=== PATIENT | female | born 1930 | race Hispanic/Latino ===

== ENCOUNTER 2018-02-02 17:00 | Emergency (ER) | payer OTHER ==
[~2018-02-02] VITALS: Ht 160 cm; Wt 85.3 kg
[~2018-02-02 17:00] MED LIST: SINGULAIR10 MG PO; Z LEVOTHROID; Z.0.ZOCOR20 MG
== END 2018-02-02 18:18 | disposition home or self-care (01) ==
LOC: FSED 17:00
DX: N30.00 Acute cystitis without hematuria (principal); R03.0 Elevated blood-pressure reading, without diagnosis of hypertension
CPT/HCPCS: 81003; 87086; 99283

== ENCOUNTER 2018-06-15 09:41 | Inpatient (IN) | payer OTHER ==
[~2018-06-15] VITALS: Ht 160 cm; Wt 75.7 kg
[2018-06-15] MEDS ORDERED: ASPIRIN 81 MG CHEW TAB PO ONE ×5 (10:00→15:45)
[2018-06-15 10:06] LABS: BASOPHILS # (AUTO) 0.1 (0.0-0.1); BASOPHILS % 0.5 % (0.0-1.0); EOSINOPHILS # (AUTO) 0.1 (0.0-0.4); EOSINOPHILS % 1.4 % (0.0-6.0); HEMATOCRIT 48.3 % (34.2-44.1); HEMOGLOBIN 15.6 g/dL (12.0-16.0); LYMPHOCYTES # (AUTO) 1.6 (1.0-3.2); LYMPHOCYTES % 17.7 % (18.0-39.1); MEAN CORPUSCULAR HEMOGLOBIN 28.7 pg (28-32); MEAN CORPUSCULAR HGB CONC 32.3 g/dL (31-35); MONOCYTES # (AUTO) 0.6 (0.2-0.8); MONOCYTES % 6.7 % (4.4-11.3); NEUTROPHILS # (AUTO) 6.8 (2.1-6.9); NEUTROPHILS % 73.4 % (38.7-80.0); PLATELET COUNT 238 x10e3/uL (140-360); RED BLOOD COUNT 5.43 x10e6/uL (3.6-5.1); RED CELL DISTRIBUTION WIDTH 13.6 % (11.7-14.4)
[2018-06-15] MEDS ORDERED: ADENOSINE 6 MG/2 ML VIAL IV ONE (10:15)
[2018-06-15 10:24] LABS: ALANINE AMINOTRANSFERASE 11 IU/L (0-55); ALBUMIN 3.9 g/dL (3.5-5.0); ALBUMIN/GLOBULIN RATIO 0.9 (0.8-2.0); ALKALINE PHOSPHATASE 109 IU/L (40-150); BLOOD UREA NITROGEN 22 mg/dL (7-26); BUN/CREATININE RATIO 29 (6-25); CALCIUM 10.2 mg/dL (8.4-10.2); CARBON DIOXIDE 22 mmol/L (22-29); CHLORIDE 103 mmol/L (98-107); CREATINE KINASE 39 IU/L (29-168); CREATININE, SERUM 0.75 mg/dL (0.57-1.11); EST GLOMERULAR FILTRATION RATE > 60 ML/MIN (60-); GLUCOSE 123 mg/dL (74-118); SODIUM 138 mmol/L (136-145)
[2018-06-15] MEDS ORDERED: DILTIAZEM HCL VIAL 5 ML ONE ×2 (10:49→13:09)
[2018-06-15 11:15] LABS: BILIRUBIN,URINE NEGATIVE (NEGATIVE); CLARITY,URINE SL CLOUDY (CLEAR); COLOR,URINE YELLOW (YELLOW); KETONES,URINE TRACE (NEGATIVE); LEUKOCYTE ESTERASE ,URINE 1+ (NEGATIVE); NITRITE,URINE NEGATIVE (NEGATIVE); PROTEIN,URINE DIPSTICK NEGATIVE (NEGATIVE); URINE UROBILINOGEN 0.2 mg/dL (0.2 - 1)
[2018-06-15 11:22] LABS: BACTERIA,URINE MANY /HPF; WBC,URINE (MAN) 21-50 /HPF (0-5)
[2018-06-15 11:23] LABS: EPITHELIAL CELLS,URINE FEW /LPF
[2018-06-15] MEDS ORDERED: DILTIAZEM HCL 5 MG/ML 5 ML VIAL IV ONE (11:45)
[2018-06-15] MEDS ORDERED: DILTIAZEM HCL 5 MG/ML 5 ML VIAL IV STA (13:30)
[2018-06-15 16:02] LABS: CHOL/HDL RATIO 2.9 (3.0-3.6)
[2018-06-15] MEDS ORDERED: METOPROLOL TARTRATE 25 MG TAB PO SCH ×2 (18:00→22:00)
[2018-06-15] MEDS: METOPROLOL TARTRATE INJ 1 MG/ML VIAL IV PRN (18:15)
--- NOTE | 2018-06-15 18:17 | Consultation ---
DATE OF CONSULTATION: REQUESTING PHYSICIAN: Dr. Richey. REASON FOR CONSULT: Atrial flutter, atrial fibrillation. HISTORY OF PRESENT ILLNESS: Ms. Espinoza is an 87-year-old lady with past medical history as listed below, reportedly had some episodes of palpitations last week and again had more episodes in the last few days, and again this morning. This morning apparently lasts for an hour or so and so she decided to come to the emergency room. She states it feels like an irregular heartbeat. There is no chest pain. Does get a little short-winded on exertion. REVIEW OF SYMPTOMS CONSTITUTIONAL: Has some fatigue and weakness. HEENT: No headache, blurring of vision, seizures, syncope. CARDIOVASCULAR: No chest pain. Had palpitations and some dyspnea. No orthopnea or PND. RESPIRATORY: No cough, fever or expectoration. GI: No abdominal pain, vomiting, diarrhea. : No dysuria, frequency, incontinence. ALLERGIES: HYDROCODONE AND INFLUENZA. MEDICATIONS: See list. PAST MEDICAL HISTORY 1. History of hypothyroidism. 2. History of hyperlipidemia. 3. Was told to have high blood pressure. SOCIAL HISTORY: Does not smoke or drink. Drinks a cup of decaffeinated coffee every day. FAMILY HISTORY: Noncontributory. PHYSICAL EXAMINATION GENERAL: Moderately built and nourished lady, alert, oriented, not in any obvious distress. VITAL SIGNS: Heart rate is 100, blood pressure 117/68, respiratory rate is 18. HEENT: Atraumatic. NECK: No JVD, bruit, thyromegaly, or lymphadenopathy. CARDIOVASCULAR: First and second heart sounds heard. No murmurs, rubs or gallops appreciated. CHEST: Decreased air entry at the bases. No adventitious sounds appreciated. ABDOMEN: Soft, nontender. EXTREMITIES: No edema. LABORATORY DATA: Sodium is 138, potassium 4.0, chloride is 103, bicarb is 22, BUN is 22, creatinine 0.7, glucose 123. Hemoglobin is 15.6, hematocrit 48.3, platelet are 238, white count is 9.2. EKG shows sinus tach/atrial flutter at 145 beats per minute, left axis nonspecific ST-T changes. Repeat EKG shows atrial flutter at 72 beats per minute, left axis nonspecific ST-T changes. IMPRESSION 1. Atrial flutter and atrial fibrillation. 2. Hypothyroidism. 3. Hyperlipidemia. PLAN 1. It sounds like patient has paroxysmal atrial fibrillation. 2. We will get echocardiogram to assess LV function and valvular function. 3. Check thyroid function test. 4. Check cardiac enzymes. 5. Start her on Lovenox and metoprolol. 6. Discussed with patient and son about long-term anticoagulation, to which they agree. We will eventually put her on a NOAC. 7. Also discussed about electrical cardioversion and ablation. For now, they want to continue medical therapy. 8. Further cardiac workup depending on clinical course. As always, I appreciate and thank you very much for your referral. Job#: [id number] GABRIEL
[2018-06-15 19:24] LABS: CREATINE KINASE MB 1.3 ng/mL (0-5.0)
[2018-06-15] MEDS ORDERED: ENOXAPARIN SOD INJ 60 MG/0.6 ML SYR SC ONE (20:29)
[2018-06-15] MEDS ORDERED: METOPROLOL TARTRATE 25 MG TAB ONE (20:29)
[2018-06-15] MEDS: ENOXAPARIN SOD INJ 60 MG/0.6 ML SYR SC SCH (20:44)
[2018-06-15] MEDS ORDERED: BENZONATATE 100 MG CAP PO PRN (21:45)
[2018-06-15] MEDS ORDERED: ACETAMINOPHEN 325 MG TAB PO PRN (21:45)
[2018-06-15] MEDS ORDERED: SENNOSIDES 8.6 MG TAB PO PRN (22:00)
[2018-06-15] MEDS ORDERED: MAGNESIUM HYDROXIDE 30 ML UDC PO PRN (22:00)
[2018-06-16] VITALS (7 sets, daily range): BP systolic 117–138; BP diastolic 72–76
[2018-06-16] MEDS: METOPROLOL TARTRATE INJ 1 MG/ML VIAL IV PRN (00:30)
[2018-06-16] MEDS: LORATADINE 10 MG TAB PO SCH ×2 (01:23→09:44)
[2018-06-16] MEDS: CEFTRIAXONE SOD 1 GM VIAL IV SCH ×2 (01:24→21:36)
[2018-06-16] MEDS: MONTELUKAST SODIUM 10 MG TAB PO SCH ×2 (01:24→21:43)
[2018-06-16 03:13] LABS: BASOPHILS # (AUTO) 0.1 (0.0-0.1); BASOPHILS % 0.6 % (0.0-1.0); EOSINOPHILS # (AUTO) 0.2 (0.0-0.4); EOSINOPHILS % 2.2 % (0.0-6.0); HEMATOCRIT 45.9 % (34.2-44.1); HEMOGLOBIN 14.8 g/dL (12.0-16.0); LYMPHOCYTES # (AUTO) 2.3 (1.0-3.2); LYMPHOCYTES % 27.5 % (18.0-39.1); MEAN CORPUSCULAR HEMOGLOBIN 28.6 pg (28-32); MEAN CORPUSCULAR HGB CONC 32.2 g/dL (31-35); MEAN CORPUSCULAR VOLUME 88.6 fL (81-99); MONOCYTES # (AUTO) 0.7 (0.2-0.8); MONOCYTES % 8.7 % (4.4-11.3); NEUTROPHILS # (AUTO) 5.1 (2.1-6.9); NEUTROPHILS % 60.6 % (38.7-80.0); PLATELET COUNT 223 x10e3/uL (140-360); RED BLOOD COUNT 5.18 x10e6/uL (3.6-5.1); RED CELL DISTRIBUTION WIDTH 13.5 % (11.7-14.4)
[2018-06-16] MEDS ORDERED: AMIODARONE 900MG 500 ML IV ONE (03:26)
[2018-06-16 03:29] LABS: ANION GAP 14.8 mmol/L (8-16); BLOOD UREA NITROGEN 15 mg/dL (7-26); BUN/CREATININE RATIO 23 (6-25); CALCIUM 9.7 mg/dL (8.4-10.2); CARBON DIOXIDE 22 mmol/L (22-29); CHLORIDE 103 mmol/L (98-107); CREATININE, SERUM 0.64 mg/dL (0.57-1.11); EST GLOMERULAR FILTRATION RATE > 60 ML/MIN (60-); GLUCOSE 113 mg/dL (74-118); POTASSIUM 3.8 mmol/L (3.5-5.1); SODIUM 136 mmol/L (136-145)
[2018-06-16] MEDS ORDERED: AMIODARONE HCL 150 MG/100 ML BAG IV ONE (03:30)
[2018-06-16 03:43] LABS: CREATINE KINASE MB 1.2 ng/mL (0-5.0)
[2018-06-16 03:50] LABS: CHOL/HDL RATIO 2.7 (3.0-3.6)
[2018-06-16] MEDS ORDERED: AMIODARONE 900MG 500 ML IV SCH ×2 (04:00→10:00)
[2018-06-16 04:14] LABS: FOLATE 15.7 ng/mL (7.0-15.4)
[2018-06-16 04:15] LABS: MAGNESIUM 1.9 MG/DL (1.3-2.1); PHOSPHORUS 2.8 MG/DL (2.3-4.7)
[2018-06-16] MEDS: METOPROLOL TARTRATE 25 MG TAB PO SCH ×3 (05:59→21:43)
[2018-06-16] MEDS: ENOXAPARIN SOD INJ 60 MG/0.6 ML SYR SC SCH ×3 (06:00→21:43)
[2018-06-16] MEDS: BENZONATATE 100 MG CAP PO SCH ×3 (09:44→21:42)
[2018-06-16 13:35] LABS: CREATINE KINASE MB 1.1 ng/mL (0-5.0)
[2018-06-16 19:07] LABS: CREATINE KINASE MB 1.2 ng/mL (0-5.0)
[2018-06-17] VITALS (7 sets, daily range): BP systolic 99–121; BP diastolic 63–89
[2018-06-17] MEDS: METOPROLOL TARTRATE 25 MG TAB PO SCH ×3 (04:39→21:03)
[2018-06-17] MEDS: AMIODARONE HCL 200 MG TAB PO SCH (08:48)
[2018-06-17] MEDS: LORATADINE 10 MG TAB PO SCH (08:48)
[2018-06-17] MEDS: BENZONATATE 100 MG CAP PO SCH ×3 (08:48→20:51)
[2018-06-17] MEDS: ENOXAPARIN SOD INJ 60 MG/0.6 ML SYR SC SCH ×2 (09:30→21:03)
[2018-06-17] MEDS: CYANOCOBALAMIN INJ 1,000 MCG/ML VIAL IM SCH (10:43)
[2018-06-17] MEDS: CEFTRIAXONE SOD 1 GM VIAL IV SCH (20:51)
[2018-06-17] MEDS: MONTELUKAST SODIUM 10 MG TAB PO SCH (21:03)
[2018-06-18] VITALS (10 sets, daily range): BP systolic 78–120; BP diastolic 45–72
[2018-06-18] MEDS: METOPROLOL TARTRATE 25 MG TAB PO SCH ×2 (06:00→14:00)
[2018-06-18] MEDS ORDERED: BENZOCAINE 20% SPR 60 ML CAN ONE (06:46)
[2018-06-18] MEDS: CYANOCOBALAMIN INJ 1,000 MCG/ML VIAL IM SCH (09:27)
[2018-06-18] MEDS: APIXABAN 5 MG TABLET PO SCH ×2 (09:27→15:43)
[2018-06-18] MEDS: LORATADINE 10 MG TAB PO SCH (09:27)
[2018-06-18] MEDS: AMIODARONE HCL 200 MG TAB PO SCH (09:27)
[2018-06-18] MEDS: BENZONATATE 100 MG CAP PO SCH ×2 (09:27→15:43)
[2018-06-18] MEDS ORDERED: SODIUM CHLORIDE 0.9% 1000ML 1,000 ML IV ONE (11:15)
[2018-06-18] MEDS ORDERED: PROPOFOL IV EMULSION 10 MG/ML 20 ML VIAL ONE (17:34)
--- NOTE | 2018-06-19 07:10 | Operative Report ---
DATE OF PROCEDURE: June 18, 2018 PROCEDURE: Synchronized cardioversion. INDICATIONS: Atrial flutter/atrial fibrillation. DESCRIPTION OF PROCEDURE: After informed consent, the patient was brought to the endoscopy suite. Patient was anesthetized by the anesthesiologist. She underwent transesophageal echocardiogram. No thrombus was noted. Paddles were placed on the patient's chest. Patient received 50 joules of synchronized cardioversion. Patient converted to a sinus rhythm. Patient tolerated the procedure without any complications. Job#: [id number] RI HUNG
--- NOTE | 2018-06-19 09:14 | Discharge Summary ---
LAW RESEARCHER: Dr. Corby Valverde FINAL DIAGNOSES 1. Atrial fibrillation with rapid ventricular rate response, status post rate control treatment and also status post cardioversion. 2. Overreplacement of thyroid medication. 3. Episodic hypotension after cardioversion, resolved. SUMMARY: An 87-year-old female well known to me has hypothyroidism. Patient came in with acute new-onset atrial fibrillation and atrial flutter. Heart rate in 120-130. The patient's TSH was very low, less than 0.01. Patient was taking thyroid replacement therapy. Her thyroid medication has been adjusted. The patient is stable with the treatment. While she was hospitalized, she was on a Cardizem drip at first, and then subsequently rate medication control, including beta natali and metoprolol. She was also loaded with amiodarone. Patient received Lovenox and subsequently going home. The patient takes Eliquis 5 mg twice a day. She is doing much better. She had cardioversion which converted to normal sinus rhythm. Rate was controlled. Blood pressure was low after the procedure, but IV bolus of normal saline 250 mL brought the patient's blood pressure up to 110-115 systolic. Patient was stable. She was discharged home. Medication reconciliation and prescriptions were given. Please review the medication list. Patient to follow up with Dr. Valverde in 1 week and myself within a week for medication reconciliation and post hospital followup. Job#: [id number] FUNMILAYO
--- NOTE | 2018-06-20 09:27 | Cardiology Report ---
DATE OF STUDY: June 18, 2018 TRANSESOPHAGEAL ECHOCARDIOGRAM REPORT INDICATIONS: Rule out thrombus prior to cardioversion. DESCRIPTION OF PROCEDURE: After informed consent, patient was brought to the endoscopy suite. The patient's throat was sprayed with Cetacaine spray. Patient was anesthetized by the anesthesiologist. Transesophageal probe was passed without any difficulty, and images were obtained in the usual fashion. Patient tolerated the procedure without any complication. REPORT: Left ventricle: Normal size with preserved systolic function. The overall estimated ejection fraction is about 50% to 55%. Left atrium: Appears to be of normal size. No spontaneous echo contrast or thrombus is seen in the left atrium or left atrial appendage. Right atrium: Normal size. Right ventricle: Normal size. Mitral valve: Is thickened with hypervalvular excursion. Trace mitral regurgitation is noted. No vegetation is seen on the mitral valve leaflets. Aortic valve: Is mildly calcified with hypervalvular excursion. No vegetation is seen on the aortic valve leaflets. No aortic regurgitation is noted. Tricuspid valve: Is structurally normal with hypervalvular excursion. Trace tricuspid regurgitation is noted. No vegetation is seen on the tricuspid valve leaflets. Pulmonic valve: Is structurally normal with hypervalvular excursion. No pulmonic regurgitation is noted. Aorta: Mild atherosclerotic plaquing at the aorta is noted. Others: No pericardial effusion is noted. No right-left shunt is seen on color contrast injection across the anterior atrial or interventricular septum, and no left-right shunt is seen across the interatrial septum on color flow. CONCLUSION: 1. Left ventricle normal size with preserved systolic function. 2. The overall estimated ejection fraction is 50% to 55%. 3. No intracardiac thrombi or vegetations noted. 4. Trace mitral regurgitation is noted. Mild atherosclerotic plaquing at the aorta is noted. Job#: [id number] EV
--- OUTSIDE RECORDS SUMMARY | 2018-08-02 02:34 | XMS REPORT | Continuity of Care Document ---
Author Author [facility] Organization [facility] Address [address] [place] [address] Phone Unavailable Care Team Providers Care Twisting Frame Operator Name Role Phone FIORDALIZA GARCIA MD PCP Insurance Providers Guarantor Toña Trevino Address [address] [place] [address] Email NONE Payer [employer] Policy Number [id number] Subscriber's Name Toña Trevino Relationship 18 Self / Same As Patient Group Number [id number] Group Name [id number] Effective Date 17 Advance Directives Directive Response Recorded Date/Time Does the patient have an advance directive? No 08/07/11 7:40am If yes, is advance directive on file with [facility]? No 08/07/11 7:40am If not on file with [facility] will patient provide a copy? No 08/07/11 7:40am Do you have a Directive to Physician? No 02/02/18 6:11pm Do you have a Medical Power of [place]? No 02/02/18 6:11pm Do you have an out of hospital Do Not Resuscitate Order? No 02/02/18 6:11pm Do you have any special needs we should be aware of? No 02/02/18 6:11pm Do you have a support person here with you today? No 02/02/18 6:11pm Did patient receive Notice of Privacy Practices? Yes 02/02/18 6:11pm Did patient receive patient rights and responsibilities? Yes 02/02/18 6:11pm Problems No problem information available. Medications Current Home Medications Medication Dose Units Route Directions Days Qty Instructions Start Date Levothyroxine Sodium (Levothroid) 112 Mcg Tablet Daily Montelukast Sodium (Singulair) 10 Mg Tablet 10 Mg Oral Daily Simvastatin (Zocor) 20 Mg Tablet Daily Social History No social history information available. Hospital Discharge Instructions No hospital discharge instruction information available. Plan of Care Discharge Date 02/02/18 6:18pm Disposition HOME, SELF-CARE Condition at Discharge Stable Instructions/Education Provided Urinary Tract Infection - Women Forms Provided Work/School Excuse Prescriptions See Medication Section Referrals FIORDALIZA GARCIA MD Address: [address] [place] [id number] Additional Instructions/Education Return to the closest emergency room if symptoms worsen. Take medication as prescribed. Fill your prescription immediately after leaving the ER. Tylenol as needed for pain. Follow up with your doctor on Monday. Functional Status No functional status information available. Allergies, Adverse Reactions, Alerts Allergen Type Severity Reaction Status Last Updated Influenza Virus Vaccine Allergy Active 08/07/11 Hydrocodone Adverse Reaction HALLUCINATIONS Active 08/07/11 Immunizations No immunization information available. Vital Signs Acute Vital Signs Vital Response Date/Time Height 5 ft 3 in 02/02/2018 5:16pm Weight 188 lb 02/02/2018 5:16pm Body Mass Index 33.3 kg/m^2 02/02/2018 5:16pm Results No relevant diagnostic test, laboratory data and/or discharge summary information available. Procedures No procedure information available. Encounters Encounter Location Arrival/Admit Date Discharge/Depart Date Attending Provider Departed Emergency Room [facility] 02/02/18 5:00pm 6:18pm ADAM DIANA MD
== END 2018-06-18 17:54 | disposition home or self-care (01) | DRG 310 ==
LOC: ER 09:41 → UNDOADMIN 12:10 → ERHOLD 12:10 → UNDOADMIN 15:26 → ERHOLD 15:26 → UNDOADMIN 17:35 → ERHOLD 17:36 → IMCU 06-16 14:19 → PACU V 06-18 13:30 → IMCU 06-18 13:38
PROVIDERS: ADMIT Internal Medicine; ATTEND Internal Medicine
PROC: 5A2204Z Restoration of Cardiac Rhythm, Single (ICD-10-PCS; principal; 2018-06-15)
DX: I48.0 Paroxysmal atrial fibrillation (principal); I48.92 Unspecified atrial flutter; I95.1 Orthostatic hypotension; E03.9 Hypothyroidism, unspecified; E78.5 Hyperlipidemia, unspecified; T38.0X5A Adverse effect of glucocorticoids and synthetic analogues, initial encounter
CPT/HCPCS: 36415; 80048; 80053; 80061; 81001; 82550; 82553; 82607; 82746; 83735; 84100; 84443; 84484; 85025; 92960; 93005; 93306; 93312; 93320; 93325; 99285; J0153; J0696; J1650; J3420; J7030

== ENCOUNTER 2018-07-12 03:45 | Observation (INO) | payer OTHER ==
[~2018-07-12] VITALS: Ht 157.5 cm; Wt 73.9 kg
[2018-07-12] MEDS ORDERED: ASPIRIN 81 MG CHEW TAB PO STA (04:05)
[2018-07-12] MEDS ORDERED: NITROGLYCERIN 2% OINT 1 GM PKT TOP ONE (04:15)
--- NOTE | 2018-07-12 05:24 | Diagnostic Imaging Report ---
EXAMINATION: CXR 1 W - [facility] INDICATION: Chest pain. COMPARISON: None FINDINGS: TUBES and LINES: None. LUNGS: Lungs are well inflated. Lungs are clear. There is no evidence of pneumonia or pulmonary edema. PLEURA: No pleural effusion or pneumothorax. HEART AND MEDIASTINUM: The cardiomediastinal silhouette is unremarkable. There are atherosclerotic calcifications within the aorta. BONES AND SOFT TISSUES: No acute osseous lesion. Soft tissues are unremarkable. UPPER ABDOMEN: No free air under the diaphragm. IMPRESSION: No acute thoracic abnormality. Signed by: Dr. Elijah Benítez M.D. on 07/12/2018 5:21 AM
[2018-07-12] MEDS ORDERED: HYDRALAZINE HCL 20 MG/ML VIAL IV STA (05:26)
[2018-07-12] MEDS ORDERED: ASPIRIN 81 MG CHEW TAB PO ONE (05:30)
[2018-07-12] MEDS ORDERED: HYDRALAZINE HCL 10 MG TAB PO ONE (05:45)
[2018-07-12] MEDS ORDERED: METOPROLOL TART25 MG PO (05:54)
[2018-07-12] MEDS ORDERED: LEVOTHYROXINE100 MC1 PO (05:54)
[2018-07-12] MEDS ORDERED: AMIODARONE HCL200 MG (05:54)
[2018-07-12] MEDS ORDERED: eliquis PO (05:54)
[2018-07-12] MEDS ORDERED: HYDRALAZINE HCL 25 MG TAB PO ONE (06:15)
[2018-07-12 07:20] VITALS: BP 156/71
[2018-07-12 07:21] LABS: CREATINE KINASE MB 0.7 ng/mL (0-5.0)
[2018-07-12 07:25] VITALS: BP 156/71
[2018-07-12] MEDS ORDERED: VITAMIN B-121000 MCG PO (08:20)
[2018-07-12] MEDS ORDERED: ASPIRIN 81 MG ENTERIC COATED PO SCH (09:00)
--- NOTE | 2018-07-12 09:12 | History and Physical ---
CHIEF COMPLAINT: Bradycardia and high blood pressure. HISTORY: This is an 87-year-old female with hypothyroidism. The patient was taking thyroid medication previously at a higher dose. Her TSH was less than 0.01. Patient came in previously with atrial fibrillation. Subsequently, she received cardioversion and amiodarone and beta natali. When she was discharged, her thyroid medication, levothyroxine, was decreased to 100 mcg per day. She has not had her TSH checked as well. Now, she came in with bradycardia and high blood pressure. The patient is otherwise stable. Cardiac enzyme is negative. The patient will need adjustment of her medication. PAST MEDICAL HISTORY: Hypothyroidism, hypertension, atrial fibrillation. PAST SURGICAL HISTORY: She has cataract, cholecystectomy, appendectomy and partial hysterectomy. SOCIAL HISTORY: Patient does not smoke or use alcohol. No recreational drugs. ALLERGIES: TO INFLUENZA VACCINE AND HYDROCODONE. HOME MEDICATIONS: Patient on amiodarone 2 mg daily, B12, levothyroxine 100 mcg daily, metoprolol tartrate 25 mg b.i.d. and Eliquis 5 mg b.i.d. PHYSICAL EXAMINATION VITAL SIGNS: Temperature is 98. Blood pressure 156/71. Pulse rate 50. Respirations 18. GENERAL: The patient is in no acute distress. She is comfortable. No chest pain. No shortness of breath. HEENT: Normocephalic, atraumatic. NECK: Supple grossly. PULMONARY: Diminished breath sounds, but without any wheezing or rales. CARDIOVASCULAR: Bradycardia. ABDOMEN: Soft, nontender. No distention. EXTREMITIES: No cyanosis or edema. NEUROLOGIC: No gross focal deficit. LABORATORY: Sodium is 141, potassium is 4.1, chloride is 104, bicarb is 27, BUN is 20, creatinine 0.9, glucose is 109. Liver enzymes unremarkable. WBC 7.1, hemoglobin is 14.9, hematocrit 44, platelet is 184,000. IMPRESSION 1. Bradycardia most likely secondary to medication effect. The patient did decrease her thyroid medication, therefore, most likely normalized thyroid stimulating hormone and therefore helping with the heart rate. Then, subsequently on beta natali and amiodarone, her heart rate may have decreased to bradycardia. 2. Hypothyroidism, previously overreplacement with thyroid medication. 3. Baseline hypotension. 4. Dyslipidemia. PLAN: 1. Continue with her 100 mg levothyroxine. Hold off the amiodarone and the metoprolol for now. Add on nifedipine XL 30 mg once a day for blood pressure control. Monitor the patient closely. 2. Once the heart rate is above 60, the patient should be able to go home and continue to adjust her heart rate as an outpatient. The patient is otherwise stable at this time. Job#: [id number] GE
[2018-07-12] MEDS: CYANOCOBALAMIN 1,000 MCG TAB PO SCH (09:15)
[2018-07-12] MEDS: APIXABAN 5 MG TABLET PO SCH ×2 (09:15→17:43)
[2018-07-12] MEDS: LEVOTHYROXINE SODIUM 100 MCG TAB PO SCH (09:15)
[2018-07-12] MEDS ORDERED: NIFEDIPINE CR 30 MG TAB PO ONE (09:15)
[2018-07-12 11:13] VITALS: BP 153/67
[2018-07-12 15:40] VITALS: BP 149/70
[2018-07-12 16:22] LABS: CREATINE KINASE 37 IU/L (29-168)
[2018-07-12 20:00] VITALS: BP 128/63
[2018-07-12 20:20] VITALS: BP 128/63
[2018-07-13] VITALS: BP 127/60
[2018-07-13 05:00] VITALS: BP 124/59
[2018-07-13] MEDS: LEVOTHYROXINE SODIUM 100 MCG TAB PO SCH (06:09)
[2018-07-13 06:22] LABS: ANION GAP 14.2 mmol/L (8-16); BLOOD UREA NITROGEN 16 mg/dL (7-26); BUN/CREATININE RATIO 20 (6-25); CALCIUM 9.6 mg/dL (8.4-10.2); CARBON DIOXIDE 26 mmol/L (22-29); CHLORIDE 104 mmol/L (98-107); CREATININE, SERUM 0.79 mg/dL (0.57-1.11); EST GLOMERULAR FILTRATION RATE > 60 ML/MIN (60-); GLUCOSE 94 mg/dL (74-118); POTASSIUM 4.2 mmol/L (3.5-5.1); SODIUM 140 mmol/L (136-145)
[2018-07-13 06:47] LABS: CHOL/HDL RATIO 3.1 (3.0-3.6)
[2018-07-13 06:55] LABS: CREATINE KINASE MB 0.6 ng/mL (0-5.0)
[2018-07-13 07:59] VITALS: BP 121/60
[2018-07-13] MEDS: APIXABAN 5 MG TABLET PO SCH (08:40)
[2018-07-13] MEDS: CYANOCOBALAMIN 1,000 MCG TAB PO SCH (08:41)
[2018-07-13] MEDS ORDERED: NIFEDIPINE CR 30 MG TAB PO SCH (09:00)
[2018-07-13] MEDS ORDERED: LEVOTHYROXINE SODIUM 50 MCG TAB PO ONE (09:10)
--- NOTE | 2018-07-13 09:12 | Discharge Summary ---
FINAL DIAGNOSES 1. Bradycardia, much improved. 2. Atypical chest pain. Negative cardiac enzymes with a previous cardiac workup negative. 3. Hypothyroidism, required adjustment of her thyroid medication. SUMMARY: Patient is a very pleasant 87-year-old female previously admitted for rapid ventricular rate response of atrial fibrillation. Patient's TSH was significantly low on last admission. The patient thyroid medication was adjusted. Her TSH now is 7.08. It was 0.02 previously. The patient was taking levothyroxine 100 mcg daily. It will increase to 125 mcg daily. The patient was on beta natali and amiodarone for her rate control. She came in with a heart rate in the 40s, but now in the 50s and rising. Patient is stable. She is ambulatory. No palpitations. No chest pain. No shortness breath. The patient wants to go home and I agreed that the patient can go home today. I will increase her levothyroxine to 125 mcg daily, and will continue to monitor closely with the TSH on followup. The patient will have her checkup with me on Monday. I advised the patient to continue to rest at home and see me on Monday for adjustment of medication. For now, the patient hold off on the amiodarone and metoprolol for now. Will continue to monitor her heart rate. The patient is otherwise stable at this time. Job#: [id number] FUNMILAYO
[2018-07-13 09:18] VITALS: BP 121/60
[2018-07-13] MEDS ORDERED: SYNTHROID125 MCG PO (10:47)
[2018-07-14] MEDS ORDERED: LEVOTHYROXINE SODIUM 125 MCG TAB PO SCH (06:00)
== END 2018-07-13 11:13 | disposition home or self-care (01) ==
LOC: FSED 03:45 → ERHOLD 05:52 → IMCU 06:28
PROVIDERS: ADMIT Internal Medicine; ATTEND Internal Medicine
DX: R00.1 Bradycardia, unspecified (principal); R07.89 Other chest pain; T38.1X5A Adverse effect of thyroid hormones and substitutes, initial encounter; E03.9 Hypothyroidism, unspecified; I48.91 Unspecified atrial fibrillation; I10 Essential (primary) hypertension; Z88.5 Allergy status to narcotic agent; Z88.7 Allergy status to serum and vaccine; E78.5 Hyperlipidemia, unspecified; I95.9 Hypotension, unspecified
CPT/HCPCS: 36415 ×2; 71045; 80048; 80053; 80061; 82550 ×2; 82553 ×2; 83735; 84443; 84484 ×2; 85025; 85379; 93005; 99284; G0378 ×2; J0360

== ENCOUNTER 2019-01-23 23:33 | Emergency (ER) | payer OTHER ==
[~2019-01-23] VITALS: Ht 157.5 cm; Wt 73.9 kg
[~2019-01-23 23:33] MED LIST changes: +AMIODARONE HCL200 MG; +LEVOTHYROXINE100 MC1 PO; +METOPROLOL TART25 MG PO; +SYNTHROID125 MCG PO; +VITAMIN B-121000 MCG PO; +eliquis PO
[2019-01-23] MEDS ORDERED: HYDRALAZINE HCL 25 MG TAB PO ONE (23:45)
[2019-01-23] MEDS ORDERED: MECLIZINE HCL 12.5 MG TAB ONE (23:52)
[2019-01-24] MEDS ORDERED: MECLIZINE HCL 12.5 MG TAB PO ONE
[2019-01-24 00:05] LABS: CLARITY,URINE CLEAR (CLEAR); COLOR,URINE YELLOW (YELLOW)
[2019-01-24 00:06] LABS: BILIRUBIN,URINE NEGATIVE (NEGATIVE); KETONES,URINE NEGATIVE (NEGATIVE); LEUKOCYTE ESTERASE ,URINE NEGATIVE (NEGATIVE); NITRITE,URINE NEGATIVE (NEGATIVE); PROTEIN,URINE DIPSTICK NEGATIVE (NEGATIVE); URINE UROBILINOGEN 0.2 mg/dL (0.2 - 1)
--- NOTE | 2019-01-24 00:25 | Diagnostic Imaging Report ---
CT BRAIN WO HISTORY: Dizziness COMPARISON: None. TECHNIQUE: Noncontrast axial scans were obtained from skull base to the vertex. Coronal and sagittal reconstructions obtained from the axial data. One or more of the following dose reduction techniques were used: Automated exposure control, adjustment of the mA and/or kV according to patient size, and/or utilization of iterative reconstruction technique. DISCUSSION: Scalp/Skull: Unremarkable. Brain sulci: Appropriate for patient's age. Ventricles: Normal in size and configuration. No hydrocephalus. Extra-axial spaces: No masses or fluid collections. Carotid siphon calcifications are present. Parenchyma: Mild periventricular white matter hypodensities are likely chronic microvascular ischemic changes. Otherwise, no mass, hemorrhage, or large vascular territory acute infarct. Dural sinuses: No abnormal densities. Sellar/Suprasellar region: Intact. Skull base: Intact. Incidental findings: Both ocular lenses appear thinned. IMPRESSION: 1. No acute intracranial abnormalities. 2. Mild supratentorial chronic microvascular ischemic change. Signed by: Dr. Armond Enriquez M.D. on 01/24/2019 12:22 AM
[2019-01-24 00:33] LABS: BACTERIA,URINE FEW /HPF; EPITHELIAL CELLS,URINE FEW /LPF; WBC,URINE (MAN) 0-5 /HPF (0-5)
[2019-01-24 00:55] VITALS: BP 152/60
[2019-01-24] MEDS ORDERED: SODIUM CHLORIDE 0.9% 1000ML 1,000 ML ONE (11:44)
== END 2019-01-24 01:09 | disposition home or self-care (01) ==
LOC: ER 23:33
DX: H81.12 Benign paroxysmal vertigo, left ear (principal); I10 Essential (primary) hypertension; I48.91 Unspecified atrial fibrillation; E78.00 Pure hypercholesterolemia, unspecified; E03.9 Hypothyroidism, unspecified; K21.9 Gastro-esophageal reflux disease without esophagitis; R00.1 Bradycardia, unspecified; M19.90 Unspecified osteoarthritis, unspecified site
CPT/HCPCS: 70450; 81001; 93005; 99283; J7030; J8597

== ENCOUNTER 2019-09-08 15:14 | Emergency (ER) | payer OTHER ==
[~2019-09-08] VITALS: Ht 157.5 cm; Wt 73.9 kg
[2019-09-08] MEDS ORDERED: LOSARTAN POTAS100 MG PO (15:51)
[2019-09-08] MEDS ORDERED: ELIQUIS5 MG PO (15:51)
[2019-09-08] MEDS ORDERED: MECLIZINE HCL12.5 MG PO (15:51)
[2019-09-08] MEDS ORDERED: AMIODARONE HCL200 MG PO (15:51)
[2019-09-08 16:06] LABS: BASOPHILS # (AUTO) 0.1 (0.0-0.1); BASOPHILS % 0.8 % (0.0-1.0); EOSINOPHILS # (AUTO) 0.1 (0.0-0.4); EOSINOPHILS % 2.2 % (0.0-6.0); HEMATOCRIT 45.1 % (34.2-44.1); HEMOGLOBIN 14.8 g/dL (12.0-16.0); LYMPHOCYTES % 17.3 % (18.0-39.1); MEAN CORPUSCULAR HEMOGLOBIN 29.3 pg (28-32); MEAN CORPUSCULAR HGB CONC 32.8 g/dL (31-35); MEAN CORPUSCULAR VOLUME 89.3 fL (81-99); MONOCYTES # (AUTO) 0.5 (0.2-0.8); MONOCYTES % 8.1 % (4.4-11.3); NEUTROPHILS # (AUTO) 4.2 (2.1-6.9); NEUTROPHILS % 70.9 % (38.7-80.0); PLATELET COUNT 240 x10e3/uL (140-360); RED BLOOD COUNT 5.05 x10e6/uL (3.6-5.1)
[2019-09-08 16:30] LABS: ALBUMIN 3.6 g/dL (3.5-5.0); ALBUMIN/GLOBULIN RATIO 0.9 (0.8-2.0); ANION GAP 13.3 mmol/L (8-16); CALCIUM 9.8 mg/dL (8.4-10.2); CREATININE, SERUM 1.04 mg/dL (0.57-1.11); POTASSIUM 4.3 mmol/L (3.5-5.1)
[2019-09-08 17:23] VITALS: BP 137/79
== END 2019-09-08 17:25 | disposition home or self-care (01) ==
LOC: ER 15:14
DX: K59.00 Constipation, unspecified (principal); K64.9 Unspecified hemorrhoids
CPT/HCPCS: 36415; 80053; 83690; 85025; 99283

== ENCOUNTER 2020-08-19 15:25 | Observation (INO) | payer OTHER ==
[~2020-08-19] VITALS: Ht 154.9 cm; Wt 68.5 kg
[~2020-08-19 15:25] MED LIST changes: +AMIODARONE HCL200 MG PO; +ELIQUIS5 MG PO; +LOSARTAN POTAS100 MG PO; +MECLIZINE HCL12.5 MG PO
[2020-08-19] MEDS ORDERED: ASPIRIN 81 MG CHEW TAB PO ONE (16:15)
[2020-08-19 16:22] LABS: BASOPHILS # (AUTO) 0.1 (0.0-0.1); BASOPHILS % 1.1 % (0.0-1.0); EOSINOPHILS # (AUTO) 0.2 (0.0-0.4); EOSINOPHILS % 3.8 % (0.0-6.0); HEMATOCRIT 45.8 % (34.2-44.1); HEMOGLOBIN 14.6 g/dL (12.0-16.0); LYMPHOCYTES # (AUTO) 1.4 (1.0-3.2); LYMPHOCYTES % 25.3 % (18.0-39.1); MEAN CORPUSCULAR HEMOGLOBIN 29.3 pg (28-32); MEAN CORPUSCULAR HGB CONC 31.9 g/dL (31-35); MEAN CORPUSCULAR VOLUME 91.8 fL (81-99); MONOCYTES # (AUTO) 0.5 (0.2-0.8); MONOCYTES % 9.1 % (4.4-11.3); NEUTROPHILS # (AUTO) 3.3 (2.1-6.9); NEUTROPHILS % 60.3 % (38.7-80.0); PLATELET COUNT 220 x10e3/uL (140-360); RED BLOOD COUNT 4.99 x10e6/uL (3.6-5.1); RED CELL DISTRIBUTION WIDTH 13.5 % (11.7-14.4)
[2020-08-19 16:33] LABS: INR 0.99; PROTHROMBIN TIME 13.6 seconds (11.9-14.5)
[2020-08-19 16:34] LABS: ANION GAP 14.6 mmol/L (8-16); CALCIUM 10.5 mg/dL (8.4-10.2); PARTIAL THROMBOPLASTIN TIME 28.7 seconds (23.8-35.5); POTASSIUM 4.6 mmol/L (3.5-5.1)
[2020-08-19 16:41] LABS: CREATINE KINASE MB 0.9 ng/mL (0-5.0)
[2020-08-19] MEDS: FAMOTIDINE 20 MG/2 ML VIAL IV SCH (18:15)
[2020-08-19] MEDS ORDERED: NITROGLYCERIN 0.4 MG SUBL SL PRN (18:15)
[2020-08-19] MEDS ORDERED: SODIUM CHLORIDE 0.9% 500ML 500 ML IV ONE (18:15)
[2020-08-19] MEDS ORDERED: ONDANSETRON HCL INJ 2MG/ML 2ML 2 MG/ML VIAL IV PRN (18:15)
[2020-08-19] MEDS ORDERED: MORPHINE SULFATE 2 MG/ML SYR 1ML IV PRN (18:15)
[2020-08-19] MEDS ORDERED: SODIUM CHLORIDE 0.9% 50ML 50 ML ONE (18:27)
[2020-08-19] MEDS ORDERED: IOPAMIDOL 370 MG/ML 200 ML INFUS..BTL INJ ONE (18:28)
[2020-08-19 18:37] LABS: BILIRUBIN,URINE NEGATIVE (NEGATIVE); CLARITY,URINE SL CLOUDY (CLEAR); COLOR,URINE YELLOW (YELLOW); KETONES,URINE NEGATIVE (NEGATIVE); LEUKOCYTE ESTERASE ,URINE NEGATIVE (NEGATIVE); NITRITE,URINE NEGATIVE (NEGATIVE); PROTEIN,URINE DIPSTICK NEGATIVE (NEGATIVE); URINE UROBILINOGEN 0.2 mg/dL (0.2 - 1)
[2020-08-19 18:48] LABS: BACTERIA,URINE MANY /HPF; EPITHELIAL CELLS,URINE RARE /LPF; RBC,URINE 0-5 /HPF (0-5)
[2020-08-19 21:30] VITALS: BP 160/62
[2020-08-19 23:22] VITALS: BP 160/62
[2020-08-19 23:42] VITALS: BP 160/62
[2020-08-20] VITALS: BP 136/59
[2020-08-20 00:37] LABS: CREATINE KINASE MB 1.1 ng/mL (0-5.0)
[2020-08-20 04:00] VITALS: BP 156/56
[2020-08-20 05:18] LABS: BASOPHILS # (AUTO) 0.1 (0.0-0.1); BASOPHILS % 0.8 % (0.0-1.0); EOSINOPHILS # (AUTO) 0.3 (0.0-0.4); EOSINOPHILS % 4.9 % (0.0-6.0); HEMATOCRIT 41.3 % (34.2-44.1); HEMOGLOBIN 13.3 g/dL (12.0-16.0); LYMPHOCYTES # (AUTO) 1.6 (1.0-3.2); LYMPHOCYTES % 27.1 % (18.0-39.1); MEAN CORPUSCULAR HEMOGLOBIN 29.2 pg (28-32); MEAN CORPUSCULAR HGB CONC 32.2 g/dL (31-35); MEAN CORPUSCULAR VOLUME 90.8 fL (81-99); MONOCYTES # (AUTO) 0.6 (0.2-0.8); MONOCYTES % 10.8 % (4.4-11.3); NEUTROPHILS # (AUTO) 3.3 (2.1-6.9); NEUTROPHILS % 56.1 % (38.7-80.0); PLATELET COUNT 190 x10e3/uL (140-360); RED BLOOD COUNT 4.55 x10e6/uL (3.6-5.1); RED CELL DISTRIBUTION WIDTH 13.5 % (11.7-14.4)
[2020-08-20 05:39] LABS: ALANINE AMINOTRANSFERASE 10 IU/L (0-55); ALBUMIN 3.2 g/dL (3.5-5.0); ALBUMIN/GLOBULIN RATIO 0.9 (0.8-2.0); ALKALINE PHOSPHATASE 72 IU/L (40-150); ANION GAP 10.7 mmol/L (8-16); BLOOD UREA NITROGEN 18 mg/dL (7-26); BUN/CREATININE RATIO 23 (6-25); CALCIUM 9.4 mg/dL (8.4-10.2); CARBON DIOXIDE 26 mmol/L (22-29); CHLORIDE 107 mmol/L (98-107); CHOL/HDL RATIO 2.5 (3.0-3.6); CHOLESTEROL 190 MD/DL (0-199); EST GLOMERULAR FILTRATION RATE > 60 ML/MIN (60-); GLUCOSE 92 mg/dL (74-118); HDL CHOLESTEROL 75 MG/DL (40-60); LDL CHOLESTEROL 103 MG/DL (60-130); POTASSIUM 4.7 mmol/L (3.5-5.1); SODIUM 139 mmol/L (136-145); TRIGLYCERIDES 59 MG/DL (0-149)
[2020-08-20] MEDS: FAMOTIDINE 20 MG/2 ML VIAL IV SCH (05:51)
[2020-08-20 05:55] LABS: CREATINE KINASE MB 1.1 ng/mL (0-5.0)
[2020-08-20 08:38] VITALS: BP 152/69
[2020-08-20 08:39] VITALS: BP 152/69
[2020-08-20] MEDS ORDERED: ASPIRIN 81 MG ENTERIC COATED PO SCH (09:00)
[2020-08-20] MEDS ORDERED: ONDANSETRON HCL 4 MG ORAL DISINTEGRATING TAB PO PRN (10:30)
[2020-08-20 11:13] VITALS: BP 160/79
[2020-08-20] MEDS ORDERED: PEPCID20 MG PO (12:03)
[2020-08-20] MEDS ORDERED: FAMOTIDINE 20 MG TAB PO SCH (16:30)
== END 2020-08-20 13:32 | disposition home or self-care (01) ==
LOC: ER 16:09 → ERHOLD 18:16 → MED/SURG2 21:31
PROVIDERS: ADMIT Internal Medicine; ATTEND Internal Medicine
DX: R10.13 Epigastric pain (principal); R07.89 Other chest pain; Z11.59 Encounter for screening for other viral diseases; I48.0 Paroxysmal atrial fibrillation; Z79.01 Long term (current) use of anticoagulants
CPT/HCPCS: 36415 ×2; 71045; 71260; 80048; 80053 ×2; 80061; 81001; 82550 ×2; 82553 ×2; 83880; 84484 ×2; 85025 ×2; 85379; 85610; 85730; 87086; 87186; 93005; 99284; G0378 ×2; J7040; Q9967; U0002

== ENCOUNTER 2021-04-15 17:38 | Emergency (ER) | payer MEDICARE, OTHER ==
[~2021-04-15] VITALS: Ht 154.9 cm; Wt 64.0 kg
[~2021-04-15 17:38] MED LIST changes: +PEPCID20 MG PO
[2021-04-15] MEDS ORDERED: BACTRIM DS TAB1 EACH PO (18:04)
[2021-04-15 18:27] VITALS: BP 5/1
== END 2021-04-15 18:32 | disposition home or self-care (01) ==
LOC: FSED 18:00
DX: R30.0 Dysuria (principal); N39.0 Urinary tract infection, site not specified; I10 Essential (primary) hypertension; I48.91 Unspecified atrial fibrillation; K21.9 Gastro-esophageal reflux disease without esophagitis; E03.9 Hypothyroidism, unspecified
CPT/HCPCS: 81003; 99284

== ENCOUNTER 2021-05-08 16:16 | Emergency (ER) | payer MEDICARE, OTHER ==
[~2021-05-08] VITALS: Ht 154.9 cm; Wt 64.0 kg
[~2021-05-08 16:16] MED LIST changes: +BACTRIM DS TAB1 EACH PO
[2021-05-08 16:59] LABS: CLARITY,URINE CLEAR (CLEAR); COLOR,URINE YELLOW (YELLOW); KETONES,URINE NEGATIVE (NEGATIVE); LEUKOCYTE ESTERASE ,URINE NEGATIVE (NEGATIVE); NITRITE,URINE NEGATIVE (NEGATIVE); PROTEIN,URINE DIPSTICK NEGATIVE (NEGATIVE); URINE UROBILINOGEN 0.2 mg/dL (0.2 - 1)
[2021-05-08 17:16] LABS: BACTERIA,URINE FEW /HPF; MUCUS,URINE FEW (RARE); WBC,URINE (MAN) 0-5 /HPF (0-5)
[2021-05-08 17:17] LABS: EPITHELIAL CELLS,URINE MANY /LPF
[2021-05-08 18:47] LABS: BASOPHILS # (AUTO) 0.1 (0.0-0.1); BASOPHILS % 0.9 % (0.0-1.0); EOSINOPHILS # (AUTO) 0.2 (0.0-0.4); EOSINOPHILS % 3.1 % (0.0-6.0); HEMATOCRIT 42.2 % (34.2-44.1); HEMOGLOBIN 13.7 g/dL (12.0-16.0); LYMPHOCYTES # (AUTO) 1.3 (1.0-3.2); LYMPHOCYTES % 20.9 % (18.0-39.1); MEAN CORPUSCULAR HGB CONC 32.5 g/dL (31-35); MEAN CORPUSCULAR VOLUME 89.2 fL (81-99); MONOCYTES # (AUTO) 0.6 (0.2-0.8); MONOCYTES % 8.8 % (4.4-11.3); NEUTROPHILS # (AUTO) 4.2 (2.1-6.9); NEUTROPHILS % 65.8 % (38.7-80.0); PLATELET COUNT 223 x10e3/uL (140-360); RED BLOOD COUNT 4.73 x10e6/uL (3.6-5.1); RED CELL DISTRIBUTION WIDTH 13.8 % (11.7-14.4)
[2021-05-08 19:06] LABS: ANION GAP 16.3 mmol/L (8-16); CALCIUM 9.4 mg/dL (8.4-10.2); CREATININE, SERUM 0.87 mg/dL (0.57-1.11); POTASSIUM 4.3 mmol/L (3.5-5.1)
== END 2021-05-08 22:15 | disposition home or self-care (01) ==
LOC: ER 17:06
DX: M54.5 Low back pain (principal); K57.90 Diverticulosis of intestine, part unspecified, without perforation or abscess without bleeding; K43.9 Ventral hernia without obstruction or gangrene; I51.7 Cardiomegaly; M85.88 Other specified disorders of bone density and structure, other site; I10 Essential (primary) hypertension; I48.91 Unspecified atrial fibrillation; E03.9 Hypothyroidism, unspecified; K21.9 Gastro-esophageal reflux disease without esophagitis
CPT/HCPCS: 36415; 74176; 80048; 81001; 85025; 87086; 99284

== ENCOUNTER 2022-01-01 11:05 | Emergency (ER) | payer OTHER ==
[~2022-01-01] VITALS: Ht 154.9 cm; Wt 64.0 kg
[2022-01-01 14:41] LABS: BASOPHILS # (AUTO) 0.1 (0.0-0.1); BASOPHILS % 0.8 % (0.0-1.0); EOSINOPHILS # (AUTO) 0.2 (0.0-0.4); EOSINOPHILS % 2.6 % (0.0-6.0); HEMATOCRIT 43.5 % (34.2-44.1); HEMOGLOBIN 14.3 g/dL (12.0-16.0); LYMPHOCYTES # (AUTO) 1.5 (1.0-3.2); LYMPHOCYTES % 25.3 % (18.0-39.1); MEAN CORPUSCULAR HEMOGLOBIN 29.5 pg (28-32); MEAN CORPUSCULAR HGB CONC 32.9 g/dL (31-35); MEAN CORPUSCULAR VOLUME 89.9 fL (81-99); MONOCYTES # (AUTO) 0.5 (0.2-0.8); MONOCYTES % 7.9 % (4.4-11.3); NEUTROPHILS # (AUTO) 3.8 (2.1-6.9); NEUTROPHILS % 62.9 % (38.7-80.0); PLATELET COUNT 219 x10e3/uL (140-360); RED BLOOD COUNT 4.84 x10e6/uL (3.6-5.1); RED CELL DISTRIBUTION WIDTH 14.5 % (11.7-14.4)
[2022-01-01 14:59] LABS: ALBUMIN 3.8 g/dL (3.5-5.0); ANION GAP 15.4 mmol/L (8-16); CALCIUM 10.1 mg/dL (8.4-10.2); CREATININE, SERUM 0.8 mg/dL (0.57-1.11); POTASSIUM 4.4 mmol/L (3.5-5.1)
[2022-01-01] MEDS ORDERED: CARAFATE1 GM PO (15:42)
[2022-01-01] MEDS ORDERED: PEPCID20 MG PO (15:42)
== END 2022-01-01 16:18 | disposition home or self-care (01) ==
LOC: ER 12:25
DX: R10.13 Epigastric pain (principal); K29.70 Gastritis, unspecified, without bleeding; I10 Essential (primary) hypertension; I48.91 Unspecified atrial fibrillation; E03.9 Hypothyroidism, unspecified; K21.9 Gastro-esophageal reflux disease without esophagitis
CPT/HCPCS: 36415; 71045; 80053; 83690; 84484; 85025; 93005; 99284